=== PATIENT | female | born 1965 | race Caucasian/White ===

== ENCOUNTER 2019-03-24 07:46 | Day surgery (SDC) | payer OTHER ==
[2019-03-24] VITALS (17 sets, daily range): BP systolic 77–122; BP diastolic 49–67; PULSE 62–93; RESP 12–20; Ht 157.5 cm; Wt 146.5 kg
[~2019-03-24] VITALS: Ht 157.5 cm; Wt 146.5 kg
[~2019-03-24 07:46] MED LIST: ASC500 PO; IBUP800T48 PO; LACTATED RINGER'S 1,000 ML IV SCH; LOSA1TAB28 PO; METF850T13 PO; SITA100T11 PO
[2019-03-24] MEDS ORDERED: METF-480 PO (08:26)
[2019-03-24] MEDS ORDERED: OLME40TA13 PO (08:26)
--- NOTE | 2019-03-24 09:29 | HPN ---
Date/Time of Note Date/Time of Note DATE: 03/24/19 TIME: 09:29 Interval H&P Admission Note Pt. seen H&P reviewed: No system changes NATY SANDRA MD Mar 24, 2019 09:29
--- NOTE | 2019-03-24 09:38 | PREAC ---
Date/Time of Note Date/Time of Note DATE: 03/24/19 TIME: 09:36 Anesthesia Eval and Record Evaluation Time Pre-Procedure Interview DATE: 03/24/19 TIME: 09:36 Age 53 Sex female NPO: 8 hrs Preoperative diagnosis UTERINE LEIOMYOMA Planned procedure HYSTEROSCOPY Past Medical History Past Medical History: Includes Cardio: HTN, Dyslipidemia Endo: Diabetes GI: Morbid obesity (BMI 59) Surgery & Anesthesia Issues No known issue Meds Anticoagulation: No Beta Lorrie within 24 hr: No Reason Beta Lorrie not given: Pt. not on B-Lorrie Reported Medications Metformin* (Glucophage*) 850 Mg Tablet, 850 MG PO WITH BREAKFAST DINNE, #60 TAB 03/24/19 Olmesartan Medoxomil (Benicar) 40 Mg Tablet, 40 MG PO DAILY, #30 TAB 03/24/19 Discontinued Reported Medications Ascorbic Acid (Vitamin C) 500 Mg Tab, 1000 MG PO DAILY, TAB 10/09/18 Sitagliptin* (Januvia*) 100 Mg Tablet, 100 MG PO DAILY, #30 TAB 10/09/18 Metformin Hcl* (Metformin Hcl*) 850 Mg Tablet, 850 MG PO WITH BREAKFAST DINNE, #60 TAB 10/09/18 Losartan-Hydrochlorothiazide (Losartan-HCTZ) 100-12.5 Mg Tab, 1 TAB PO DAILY, TAB 10/09/18 Discontinued Scripts Ibuprofen* (Motrin*) 800 Mg Tab, 800 MG PO Q6H PRN for PAIN AND OR ELEVATED TEMP, #30 TAB Prov:ANA YAP MD 10/09/18 Current Medications Lactated Ringer's 1,000 ml @ 125 mls/hr Q8H IV ; Start 03/24/19 at 06:00; Stop 03/24/19 at 17:00 Meds reviewed: No Allergies Coded Allergies: No Known Allergy (Unverified , 03/24/19) Allergies Reviewed: No Labs/Studies Labs Reviewed: Reviewed by anesthesiologist test: Negative Studies: ECG Pre-procedure Exam Last vitals Vital Signs Date Temp Pulse Resp B/P (MAP) Pulse Ox O2 O2 Flow FiO2 Time Delivery Rate 03/24/19 98.0 77 16 122/67 95 08:00 (85) Airway: Adequate mouth opening, Adequate thyromental dist Mallampati: Mallampati III Teeth: Normal Lung: Normal Heart: Normal ASA Physical Status ASA physical status: 3 Emergency: None Planned Anesthetic General/MAC: ETT Planned Pain Management Parenteral pain med, Local by surgeon Pre-operative Attestations Prior to commencing anesthesia and surgery, the patient was re-evaluated, there was verification of: *The patient's identity *The results of appropriate recent lab work and preoperative vital signs *The above evaluation not changing prior to induction *Anesthetic plan, risk benefits, alternative and complications discussed with patient/family; questions answered; patient/family understands, accepts and wishes to proceed. RAFAL CROSS Mar 24, 2019 09:38
[2019-03-24] MEDS ORDERED: MIDAZOLAM 1 MG/ML 2 ML INJ ONE (10:13)
[2019-03-24] MEDS ORDERED: KETAMINE (50 MG/ML) 10 ML VIAL ONE (10:13)
[2019-03-24] MEDS ORDERED: FENTAnyl 50 MCG/ML VIAL ONE (10:22)
[2019-03-24] MEDS ORDERED: CEFAZOLIN 1 GM INJ ONE (10:27)
[2019-03-24] MEDS ORDERED: OXYCODONE/ACETAMINOPHEN (5/325) TAB PO PRN (11:30)
[2019-03-24] MEDS ORDERED: LABETALOL HCL 20MG INJ IV PRN (11:30)
[2019-03-24] MEDS ORDERED: ONDANSETRON 4 MG INJ IV PRN (11:30)
[2019-03-24] MEDS ORDERED: hydrALAzine 20 MG INJ IV PRN (11:30)
--- NOTE | 2019-03-24 11:33 | PD.PPDC ---
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
--- NOTE | 2019-03-24 11:38 | SIPON ---
Date/Time of Note Date/Time of Note DATE: 03/24/19 TIME: 11:35 Operative Report Preoperative Diagnosis postmenopausal bleeding prominent endometrium uterine fibroid Postoperative Diagnosis see pathologic report Operation/Procedure Performed multiple attempts of hysteroscopy , failed D&C Surgeon see signature line special education assistant MT ( Gilberto) Anesthesia: spinal, other (sedation) Estimated blood loss: minimal Transfusion Required none Specimen uterine curettage Grafts/Implants none Complications none NATY SANDRA MD Mar 24, 2019 11:38
--- NOTE | 2019-03-24 11:41 | PAC ---
Date/Time of Note Date/Time of Note DATE: 03/24/19 TIME: 11:40 Post-Anesthesia Notes Post-Anesthesia Note Last documented vital signs TEMP 99 HR 84 BP 89/45 RR 16 SPO2 99% Vital Signs Date Temp Pulse Resp B/P (MAP) Pulse Ox O2 O2 Flow FiO2 Time Delivery Rate 03/24/19 98.0 77 16 122/67 95 08:00 (85) Activity: WNL Respiratory function: WNL Cardiovascular function: WNL Mental status: Baseline Pain reasonably controlled: Yes Hydration appropriate: Yes Nausea/Vomiting absent: Yes RAFAL CROSS Mar 24, 2019 11:41
[2019-03-24] MEDS ORDERED: FENTAnyl 50 MCG/ML VIAL IV PRN (12:00)
[2019-03-24] MEDS ORDERED: SOD CHLORIDE 0.9% 1,000 ML IV SCH (12:00)
[2019-03-24] MEDS ORDERED: EPHEDrine 25 MG/5 ML SYG IV PRN (12:30)
--- NOTE | 2019-03-26 00:54 | OPR ---
DATE OF OPERATION: PREOPERATIVE DIAGNOSES: 1. Postmenopausal bleeding. 2. Prominent endometrium. 3. Uterine fibroid. POSTOPERATIVE DIAGNOSES: 1. See pathological report. 2. Postmenopausal bleeding. 3. Prominent endometrium. 4. Uterine fibroid. OPERATION PERFORMED: 1. Multiple attempts of the hysteroscopy; failed, no further trial because of the danger of the comp lication. 2. Uterine curettage. ANESTHESIA: ____ ANESTHESIOLOGIST: Dr. Sims ASSISTANTS: Multiple, 5 people, were holding the ____ and the vulva and the speculum, because of the morbid obesity. PROCEDURE IN DETAIL: Because the patient is high risk of general anesthesia, anesthesiologist, Dr. Edgar menon, decided to do the spinal anesthesia, which was given, and patient was on the stirrups, prepp ed and draped in usual aseptic manner. A weighted speculum was introduced which was not able to see the cervix and then trying with multiple instruments with extra hands to separate the vulvae area and the cervix was barely fond out and the cavity was sounded, which was 8 cm. Due to all these factors that interrupted proper visualization and tried multiple hysteroscope, which actually entered, but v isualization was not adequate due to the technology problem with the scope and then reinserted and wi th the scope multiple times and at this point, rather discontinue the trial of hysteroscope and the c avity was sounded to 8 cm and also dilated up to 8 and a small uterine curette was introduced into th e uterine cavity. Entire uterine cavity was curetted in all directions with obtaining very scanty am ount of tissue which was contradicting the result of ultrasound. There was no irregularity noted. Sammie arteaga was sent to pathology. At this point no further trial of the hysteroscope because the danger of complication. All the instruments were removed from the operative field and specimen was sent to pathology which was scanty. The patient sent to the recovery room and going to keep the patient a f ew hours because of the spinal anesthesia. ESTIMATED BLOOD LOSS: Negligible. Dictated By: CHALINO GONG/ESA Conf#: [id number] DID#: [id number]
== END 2019-03-24 18:05 | disposition home or self-care (01) ==
LOC: SDS 07:46
PROVIDERS: ATTEND Obstetrics & Gynecology
DX: N95.0 Postmenopausal bleeding (principal); D25.9 Leiomyoma of uterus, unspecified; I10 Essential (primary) hypertension; E78.5 Hyperlipidemia, unspecified; E11.9 Type 2 diabetes mellitus without complications
CPT/HCPCS: 58558; 82962; 88305; J0690; J2250; J3010; Z7512; Z7610